=== PATIENT | female | born 1990 | race Caucasian/White ===

== ENCOUNTER 2021-06-07 11:56 | Emergency (ER) | payer OTHER, SELFPAY ==
--- NOTE | ~2021-06-07 | XR_ITS ---
EXAMINATION: XR chest 2V 06/07/2021 12:52 INDICATION: Shortness of breath PROCEDURE: 2 view chest COMPARISON: 02/01/2012 FINDINGS: The lungs are clear. The cardiomediastinal silhouette is within normal limits. There are no pleural effusions. There is no pneumothorax suspected. There is scoliosis. IMPRESSION: 1: NO ACUTE CARDIOPULMONARY DISEASE. Reviewed, dictated and finalized at location A. [employer]
[2021-06-07 12:06] VITALS: BP 125/71; PULSE 94; RESP 16; TEMP 36.6; O2SAT 100
--- NOTE | 2021-06-07 12:13 | ED.URI ---
HPI - URI/Sore Throat General Chief Complaint: Upper Respiratory Infection Stated Complaint: sob Time Seen by Provider: 06/07/21 12:13 Source: patient and RN notes reviewed Mode of arrival: ambulatory Limitations: no limitations History of Present Illness HPI Narrative: 31-year-old female with history of asthma presents with concern for 5-day history of shortness of breath, rib pain. Reports on day 1 of illness she had a negative rapid COVID test and a negative PCR. Reports other members of her household are sick. MD elicited complaint: cough Related Data Home Medications Medication Instructions Recorded Confirmed buspirone 7.5 mg PO DAILY 06/07/21 06/07/21 doxycycline hyclate 100 mg PO DAILY 06/07/21 06/07/21 gabapentin 100 mg PO DAILY 06/07/21 06/07/21 ubrogepant [Ubrelvy] 100 mg PO PRN PRN 06/07/21 06/07/21 Allergies Allergy/AdvReac Type Severity Reaction Status Date / Time latex Allergy Severe RASH Verified 06/07/21 12:21 cephalexin Allergy Unknown Unknown Verified 06/07/21 12:21 codeine Allergy Unknown Rash Verified 06/07/21 12:21 metoclopramide Allergy Unknown Unknown Verified 06/07/21 12:21 ondansetron Allergy Unknown Unknown Verified 06/07/21 12:21 Penicillins Allergy Unknown UNKNOWN Verified 06/07/21 12:21 sumatriptan Allergy Unknown Unknown Verified 06/07/21 12:21 Review of Systems Review of Systems: CONSTITUTIONAL: Reports malaise. Denies chills, sweats, or fever. EYES: Denies visual changes, redness, or discharge. ENT: Reports rhinorrhea, congestion. Denies sinus pain, otalgia and sore throat. CARDIOVASCULAR: Denies chest pain, palpitations, or edema. RESPIRATORY: Reports cough, shortness of breath GASTROINTESTINAL: Denies abdominal pain, nausea, vomiting, diarrhea SKIN: Denies rash or itching. MUSCULOSKELETAL: Denies myalgia. NEUROLOGIC: Denies headache. All systems reviewed & are unremarkable except as noted in HPI and below PMFSH Comments At time of signature, agree with nursing past medical, surgical, social and family history. There is no relevant family history pertinent to the presenting complaint Exam Narrative: GENERAL: Well-appearing, well-nourished, and in no acute distress. HEAD: Normocephalic EYES: PERRLA, conjunctivae clear ENT: Mucous membranes moist. NECK: Supple. No lymphadenopathy CHEST: Clear to auscultation, breath sounds equal. No wheezing, rhonchi, rales, or stridor. No respiratory distress, speaks in full sentences. Slight hoarse voice noted HEART: Regular rate and rhythm. No murmur heard. SKIN: Warm, dry, no rash. NEURO: Alert and oriented x3. PSYCH: Normal mood and affect Course Course Emergency Course: Patient is aware of diagnosis, understands and agrees to treatment plan. Anticipatory guidance given. Patient agrees to follow-up as directed and is aware of reasons to seek care at the emergency department. Portions of this record may have been created with voice recognition software Level of Care: Express Care Visit Vital Signs Vital signs: Vital Signs Temperature 97.8 F 06/07/21 12:06 Pulse Rate 94 06/07/21 12:06 Respiratory Rate 16 06/07/21 12:06 Blood Pressure 125/71 06/07/21 12:06 Pulse Oximetry 100 06/07/21 12:06 Temperature 97.8 F 06/07/21 12:06 Pulse Rate 94 06/07/21 12:06 Respiratory Rate 16 06/07/21 12:06 Blood Pressure 125/71 06/07/21 12:06 Pulse Oximetry 100 06/07/21 12:06 Reviewed. MDM - URI/Sore Throat MDM Narrative Medical decision making narrative: Differential diagnosis considered: Cervantes virus, strep pharyngitis, allergic rhinitis, upper respiratory tract infection, sinusitis, rhinosinusitis, nasopharyngitis. viral pharyngitis, otitis media, otitis externa, pneumonia, bronchitis, viral cough syndrome, viral syndrome, and influenza. Exam findings show no acute concerns or changes; patient is non-toxic appearing and is in no distress. Patient is appropriate for outpatient treatment and follow-up. Lab Data Attes
== END 2021-06-07 13:15 | disposition home or self-care (01) ==
PROVIDERS: Emergency Provider Nurse Practitioner
DX: J40 Bronchitis, not specified as acute or chronic (principal); F41.9 Anxiety disorder, unspecified; J45.909 Unspecified asthma, uncomplicated
CPT/HCPCS: 71046; 99213; G0463